=== PATIENT | female | born 1945 | race Caucasian/White ===

== ENCOUNTER 2020-04-30 10:01 | Emergency (ER) | payer OTHER ==
[~2020-04-30] VITALS: Ht 170.2 cm; Wt 86.2 kg
[2020-04-30 11:13] LABS: BASOPHILS % (AUTO) 0.5 % (0.0-2.0); HEMATOCRIT 38.6 % (31.2-41.9); HEMOGLOBIN 12.7 g/dL (10.9-14.3); LYMPHOCYTES # (AUTO) 0.5 K/uL (20.0-40.0); LYMPHOCYTES % (AUTO) 10.1 % (20.5-51.5); MEAN CORPUSCULAR HEMOGLOBIN 29.7 uug (24.7-32.8); MEAN CORPUSCULAR HGB CONC 33 g/dL (32.3-35.6); MEAN CORPUSCULAR VOLUME 90.5 fL (75.5-95.3); MONOCYTES # (AUTO) 0.3 K/uL (2.0-10.0); MONOCYTES % (AUTO) 7.1 % (0.0-11.0); NEUTROPHILS # (AUTO) 3.9 K/uL (1.8-8.9); NEUTROPHILS % (AUTO) 82.3 % (38.5-71.5); PLATELET COUNT (AUTO) 167 K/uL (179-408); RED BLOOD CELL COUNT(AUTO) 4.27 MIL/uL (3.63-4.92); WHITE BLOOD COUNT (AUTO) 4.7 K/uL (3.8-11.8)
[2020-04-30 11:23] LABS: CREATININE 0.9 mg/dL (0.6-1.3); POTASSIUM 3.8 mmol/L (3.5-5.1)
[2020-04-30 11:38] LABS: BILIRUBIN,TOTAL 0.7 mg/dL (0.2-1.0); TOTAL PROTEIN, SERUM 7.3 g/dL (6.4-8.2)
--- NOTE | 2020-04-30 13:26 | NUR ---
Pt can't recall medication list. Pt states she is a [employer] member.
[2020-04-30] MEDS ORDERED: IOHEXOL 350 100 ML INFUS..BTL ONE (13:45)
[2020-04-30] MEDS ORDERED: IV NORMAL SALINE 250 ML IV ONE (13:45)
[2020-04-30] MEDS ORDERED: SWABABLE VALVE TRANSFER SET EA MC ONE (13:45)
[2020-04-30 15:50] VITALS: BP 155/72
--- NOTE | 2020-04-30 16:02 | NUR ---
Patient discharged to home in stable condition. Written and verbal after care instructions given. Patient verbalizes understanding of instructions. Stressed follow up or return to ER for worsening s/s.
== END 2020-04-30 16:05 | disposition home or self-care (01) ==
LOC: ER 10:01
DX: U07.1 COVID-19 (principal); J12.89 Other viral pneumonia; Z85.43 Personal history of malignant neoplasm of ovary; D69.6 Thrombocytopenia, unspecified; I45.10 Unspecified right bundle-branch block
CPT/HCPCS: 71045; 71275; 80053; 82550; 82728; 83605; 83615; 83880; 84145; 84484; 85025; 85379; 85730; 86140; 87040 ×2; 93005; 99285; Q9967; 36415; 70030-TC; A4663; J7050